=== PATIENT | male | born 1995 | race American Indian/Alaskan Native ===

== ENCOUNTER 2022-05-20 15:27 | Emergency (ER) | payer SELFPAY ==
[2022-05-20] MEDS ORDERED: LIDOCAINE-MPF (1%) 10 MG/1 ML VIAL 5 ML INFILTRATI ONE (16:23)
--- NOTE | 2022-05-20 16:24 | Emergency Department Report ---
ED Dysuria HPI - HPI Chief Complaint: Urogenital-Male Stated Complaint: STD SYM Time Seen by Provider: 05/20/22 16:23 Duration: 2 Days Location of Discomfort: Suprapubic Severity: Mild Symptoms: Dysuria: Yes, Frequency: No, Suprapubic Pain: No, Flank Pain: No, Fever: No, Hematuria: No, Abdominal Pain: No, Previous UTI's: No Other History: 26 yo comes to ER with penile lesions. Tx this week for chlamydia. Sex with women. No hx STD. Afebrile ED Review of Systems ROS: Stated complaint: STD SYM Other details as noted in HPI Comment: All other systems reviewed and negative ED Past Medical Hx - Past Medical History Previous Medical History?: No - Surgical History Past Surgical History?: Yes Additional Surgical History: Hernia - Medications Home Medications: Home Medications Medication Instructions Recorded Confirmed Last Taken Type Acyclovir 400 mg PO Q6H #40 05/20/22 Unknown Rx Azithromycin [Zithromax Z-MOMO] 1,000 mg PO ONCE #4 05/20/22 Unknown Rx Dysuria Exam - Exam General: Vital signs noted. No distress. Alert and acting appropriately. Exam: Yes Moist Mucous Membranes, No CVA Tenderness, No Abdominal Tenderness, No Rigidity or Guarding ED Course Vital Signs 05/20/22 15:30 Temperature 98.5 F Pulse Rate 75 Respiratory 18 Rate Blood Pressure 133/72 [Right] O2 Sat by Pulse 99 Oximetry ED Medical Decision Making - Medical Decision Making herpetic lesions of penile shaft getting flagyl at home will give rocephin IM and dc on azithro and acyclovir. educated on herpes spread Vital Signs (72 hours) 05/20/22 15:30 Temperature 98.5 F Pulse Rate 75 Respiratory 18 Rate Blood Pressure 133/72 [Right] O2 Sat by Pulse 99 Oximetry - Differential Diagnosis std/herpes Critical care attestation.: If time is entered above; I have spent that time in minutes in the direct care of this critically ill patient, excluding procedure time. ED Disposition Clinical Impression: Concern about STD in male without diagnosis Genital herpes Qualifiers: Herpes simplex infection site: unspecified Qualified Code(s): A60.00 - Herpesviral infection of urogenital system, unspecified Disposition: HOME / SELF CARE / HOMELESS Is pt being admited?: No Does the pt Need Aspirin: No Condition: Stable Instructions: Genital Herpes Additional Instructions: follow up with pcp as we discussed referral below Prescriptions: Acyclovir 400 mg PO Q6H #40 Azithromycin [Zithromax Z-MOMO] 1,000 mg PO ONCE #4 Referrals: MITCHELL DODSON MD [Primary Care Provider] - 3-5 Days Forms: Work/School Release Form(ED) Time of Disposition: 16:25
[2022-05-20 17:23] VITALS: BP 118/78
== END 2022-05-20 17:23 | disposition home or self-care (01) ==
LOC: ED 15:27
DX: A60.00 Herpesviral infection of urogenital system, unspecified (principal); Z20.2 Contact with and (suspected) exposure to infections with a predominantly sexual mode of transmission; Z98.890 Other specified postprocedural states; Z79.899 Other long term (current) drug therapy
CPT/HCPCS: 96372; 99282; J0696; J3490